=== PATIENT | male | born 1975 | race African-American/Black ===

== ENCOUNTER 2021-01-27 16:31 | Emergency (ER) | payer MEDICAID ==
[~2021-01-27] VITALS: Ht 165.1 cm; Wt 89.8 kg
--- NOTE | ~2021-01-27 | EMS ---
[facility] [address] [place] [address] EMS Patient Care Report Name: GINA HERRERA Room #: DEP DEEPTI Red#: [id number] Admission: 01/27/21 Attend Phys: Discharge: 01/27/21 Date of : 77 Report #: [id number] THIS REPORT FOR: //name// Report Transmitted: 01/27/2021 20:05 EMS Care Summary [facility] MED-ACT Incident [id number] @ 01/27/2021 15:53 Incident Location [address] [place] [address] Patient GINA HERRERA Male, 45 Years 1975 Patient Address [address] [place] [address] Patient History Kidney Stone, Patient Allergies No known allergies, Patient Medications Hydrocodone, Chief Complaint Flank pain Disposition Transported No Lights/[place] Reason Unconscious/Fainting Transported To [facility] Narrative On EMS arrival, pt found sitting on his couch clutching his left side. He reports that he had kidney stones and was in the hospital with a stent placed in his kidney. He reports that he had the stent removed today and was sent home. Pt reports that he felt fine until he had started driving home. Pt [facility] [address] [place] [address] EMS Patient Care Report Name: GINA HERRERA Room #: DEP ER Neda#: [id number] Admission: 01/27/21 Attend Phys: Discharge: 01/27/21 Date of : 77 Report #: [id number] reports that he had extreme pain in the same area from when he had kidney stones. Pt reports that he got home and took some hydrocodone but that did not help. Pt reports that he was never told what to expect after being discharged, to which pt's responds by saying the DrGautam informed him there would be pain, but she didn't think it would be a lot of pain. Pt and family report they did not call the prior to calling EMS. Pt reports that he want to go to the closest hospital due to his pain, despite his procedure being done at a different hospital. Pt denies any chest pain, nausea, vomiting, weakness, dizziness, or shortness of breath. Pt was able to ambulate to the cot unassisted. Pt reports that his pain had dropped from a 10 to a 7 throughout transport after administration of Fentanyl. Pt transported to ED room 1. Pt transferred himself to the ED bed via scooting. Pt left with rails up and staff in attendance. Initial Vitals @16:17P: 64,BP: 145/81,Pain: 9/10,SpO2: 100, @16:24P: 66,BP: 133/83,Pain: 7/10,SpO2: 98, @16:12P: 69,R: 20,BP: 145/94,Pain: 10/10,GCS: 15,Temp: 98.1F,SpO2: 100,Revised Trauma: 12, Assessments @16:04MENTAL:Person Oriented,Time Oriented,Place Oriented,Event Oriented,SKIN:HEENT:Head/Face: No Abnormalities,Neck/Airway: No Abnormalities,LUNG SOUNDS:Left Lower: Guarding,ABDOMEN:Left Lower: Guarding,PELVIS//GI:No Abnormalities,EXTREMITIES:PULSE:NEURO: Impression Abdominal Pain Procedures @16:18Fentanyl - 50 Micrograms (mcg) - Intravenous (IV)Response: Improved@16:15Saline Lock 10cc (18 ga) Site: Antecubital-RightResponse: UnchangedSucceeded Timeline 15:50,Call Received 15:50,Psap Call 15:53,Dispatched 15:53,En Route 16:00,On Scene 16:03,At Patient 16:12,BP: 145/94 M,PULSE: 69,RR: 20 R,SPO2: 100 Ox,ETCO2: ,BG: ,PAIN: 10,GCS: 15, [address] [address] EMS Patient Care Report Name: GINA HERRERA Room #: [facility]P [facility] [id number] Admission: 01/27/21 Attend Phys: Discharge: 01/27/21 Date of : 77 Report #: [id number] 16:15,Saline Lock 10cc 18 ga Site: Antecubital-Right,Response: UnchangedSucceeded, 16:17,BP: 145/81 M,PULSE: 64,RR: R,SPO2: 100 Ox,ETCO2: ,BG: ,PAIN: 9,GCS: , 16:18,Fentanyl - 50 Micrograms (mcg) - Intravenous (IV),Response: Improved 16:20,Depart Scene 16:24,BP: 133/83 M,PULSE: 66,RR: R,SPO2: 98 Ox,ETCO2: ,BG: ,PAIN: 7,GCS: , 16:28,At Destination 16:52,Call Closed Disclaimer [email or web address] Copyright 2020 [employer] This EMS Care Summary contains data elements from the applicable legal record (which may be displayed differently). It is designed to provide pertinent information for the following purposes: continuity of care, clinical quality, and state data reporting. The complete legal record is available to ED staff and administrators of the receiving hospital in [employer]'s Patient Tracker. All data is provided "as is."
[~2021-01-27 16:31] MED LIST: HYDROCODONE-APA1 TA1
[2021-01-27] MEDS ORDERED: OXYCODONE HCL 55 MG PO (16:35)
[2021-01-27] MEDS ORDERED: OXYBUTYNIN 5 MG5 M2 PO (16:35)
[2021-01-27] MEDS ORDERED: CIPROFLOXACIN500 M1 PO (16:35)
[2021-01-27] MEDS ORDERED: TAMSULOSIN HCL0.4 MG PO (16:35)
[2021-01-27] MEDS ORDERED: BUPROPION HCL150 M1 PO (16:36)
[2021-01-27] MEDS ORDERED: HYOSCYAMINE0.125 MG PO (16:36)
[2021-01-27 16:58] LABS: URINE BILIRUBIN NEGATIVE (Negative); URINE BLOOD 3+ (Negative); URINE CLARITY SL CLOUDY; URINE COLOR YELLOW; URINE GLUCOSE-RANDOM* NEGATIVE (Negative); URINE KETONES NEGATIVE (Negative); URINE NITRITE-REFLEX NEGATIVE (Negative); URINE PROTEIN (DIPSTICK) 2+ (Negative)
[2021-01-27 16:59] LABS: URINE LEUKOCYTES-REFLEX 2+ (Negative)
[2021-01-27 17:02] LABS: ABSOLUTE NEUTROPHILS 5.1 thou/uL (1.4-8.2); BASOPHILS 0.3 % (0.0-2.0); EOSINOPHILS 1.6 % (0.0-3.0); HEMATOCRIT 39.6 % (42.0-52.0); HEMOGLOBIN 13.4 gm/dL (14.0-18.0); LYMPHOCYTES 27.6 % (24.0-44.0); MCH 29.5 pg (26.0-34.0); MCHC 33.7 g/dL (28.0-37.0); MCV 87.5 fL (80.0-100.0); MONOCYTES 6.5 % (1.0-8.0); PLATELET COUNT 290 thou/uL (150-400); RBC 4.53 mil/uL (4.50-6.00); RDW 12.7 % (10.5-14.5)
[2021-01-27 17:07] LABS: MUCUS 0-3 Light strn/LPF (None Seen); SQUAMOUS None Seen /LPF (0-3); URINE RBC >20 Many /HPF (0-2)
[2021-01-27 17:08] LABS: CASTS None Seen /LPF (None Seen); CRYSTALS None Seen /LPF (None Seen); YEAST-REFLEX Present (None Seen)
[2021-01-27 17:08] LABS: CALCIUM 8.9 mg/dL (8.5-10.1); CREATININE 0.9 mg/dL (0.7-1.3); POTASSIUM 4.4 mmol/L (3.5-5.1)
[2021-01-27 18:11] VITALS: BP 104/54
== END 2021-01-27 18:11 | disposition home or self-care (01) ==
LOC: ER 16:31
PROVIDERS: Emergency Medicine
DX: N20.0 Calculus of kidney (principal); Z79.899 Other long term (current) drug therapy